=== PATIENT | female | born 1960 | race Caucasian/White ===

== ENCOUNTER 2017-02-28 17:32 | Inpatient (IN) | payer OTHER ==
[~2017-02-28] VITALS: Ht 162.6 cm; Wt 116.2 kg
[2017-03-01 06:11] LABS: HCT 27.2 % (37.0-47.0); HGB 8.8 g/dl (12.5-16.0); MCH 30.9 pg (25.0-31.0); MCHC 32.4 g/dL (32.0-36.0); MCV 95.4 fL (78.0-100.0); MPV 8.9 fL (6.0-9.5); RBC 2.85 M/uL (4.20-5.40); RDW 15.7 % (11.5-14.0); WBC 6.3 K/uL (4.0-10.5)
[2017-03-01 06:35] LABS: CREATININE 0.7 mg/dL (0.5-1.0); MAGNESIUM 1.49 mg/dL (1.40-2.10); PHOSPHORUS 3.6 mg/dL (2.7-4.5); POTASSIUM 3.4 mmol/L (3.5-5.1)
[2017-03-02 05:09] LABS: CREATININE 0.8 mg/dL (0.5-1.0); POTASSIUM 3.9 mmol/L (3.5-5.1)
[2017-03-04 13:55] LABS: POTASSIUM 4.3 mmol/L (3.5-5.1)
[2017-03-07 08:13] LABS: BILIRUBIN NEGATIVE (NEGATIVE); BLOOD NEGATIVE Ery/uL (NEGATIVE); CLARITY CLEAR (CLEAR); COLOR YELLOW (YELLOW); GLUCOSE (U) NORMAL (NORMAL); KETONE (U) NEGATIVE (NEGATIVE); LEUKOCYTES NEGATIVE Leu/uL (NEGATIVE); NITRITE NEGATIVE (NEGATIVE); PROTEIN NEGATIVE (NEGATIVE); SPECIFIC GRAVITY 1.015 (1.001-1.030); UROBILINOGEN 0.2 mg/dL (0.2-1.0); pH 6.5 (5.0-9.0)
[2017-03-07 09:01] LABS: BACTERIA TRACE; SQUAMOUS EPITHELIAL CELLS RARE; URINARY RBC RARE; URINARY WBC RARE
--- NOTE | 2017-03-09 11:41 | NUR ---
PT. D/C HOME WITH SPOUSE. PT. HAS A ROLLING WALKER. PT. REQUESTED OUTPT. THERAPY AT [facility]. FIRST APPT. IS SUNDAY, 03/14 @ 10:00 A.M. D/C NOTICE AND QUESTIONNAIRE GIVEN.
== END 2017-03-09 11:39 | disposition home or self-care (01) | DRG 948 ==
LOC: FSNU 17:32
PROVIDERS: Hospitalist; Internal Medicine Cardiovascular Disease; ADMIT Internal Medicine
DX: R53.1 Weakness (principal); N17.9 Acute kidney failure, unspecified; I11.0 Hypertensive heart disease with heart failure; I50.30 Unspecified diastolic (congestive) heart failure; E11.9 Type 2 diabetes mellitus without complications; E87.6 Hypokalemia; D64.9 Anemia, unspecified; G47.33 Obstructive sleep apnea (adult) (pediatric); J30.2 Other seasonal allergic rhinitis; K21.9 Gastro-esophageal reflux disease without esophagitis; Z79.899 Other long term (current) drug therapy
CPT/HCPCS: 36415; 80048; 81001; 82962; 83735; 84100; 87088; 87493; 97110; 97116; 97162; 97166; 97530; 97530-GP; 97535